=== PATIENT | male | born 2000 | race African-American/Black ===

== ENCOUNTER 2021-09-09 16:42 | Emergency (ER) | payer OTHER ==
[~2021-09-09] VITALS: Ht 177.8 cm; Wt 71.3 kg
[2021-09-09 16:49] VITALS: BP 147/92
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
== END 2021-09-09 17:43 | disposition home or self-care (01) ==
LOC: ER 16:42
DX: S63.502A Unspecified sprain of left wrist, initial encounter (principal); V49.69XA Unspecified car occupant injured in collision with other motor vehicles in traffic accident, initial encounter; Y93.89 Activity, other specified; Y92.89 Other specified places as the place of occurrence of the external cause; Y99.8 Other external cause status
CPT/HCPCS: 29125; 73110; 99283